=== PATIENT | male | born 2000 | race Hispanic/Latino ===

== ENCOUNTER 2022-05-17 15:08 | Inpatient (IN) | payer OTHER ==
[~2022-05-17] VITALS: Ht 170.2 cm; Wt 77.3 kg
[2022-05-17 16:06] LABS: HEMOGLOBIN 14.8 g/dl (13.5-17.5); MEAN CORPUSCULAR HEMOGLOBIN 30.8 pg (27.0-33.0); MEAN CORPUSCULAR HGB CONC 33.6 g/dl (32.0-36.5); MEAN CORPUSCULAR VOLUME 91.5 fl (80.0-96.0); PLATELET COUNT, AUTOMATED 238 10^3/uL (150-450); RED BLOOD COUNT 4.81 10^6/uL (4.30-6.10); WHITE BLOOD COUNT 6.1 10^3/uL (4.0-10.0)
[2022-05-17 16:47] LABS: RSV AMPLIFICATION NEGATIVE (NEGATIVE)
[2022-05-17 16:47] LABS: ACETAMINOPHEN LEVEL < 2.0 UG/ML (10.0-30.0); ALBUMIN 4.4 GM/DL (3.2-5.2); ALT/SGPT 43 U/L (12-78); BILIRUBIN,DIRECT 0.1 MG/DL (0.0-0.2); BILIRUBIN,TOTAL 0.4 MG/DL (0.2-1.0); BLOOD UREA NITROGEN 11 MG/DL (7-18); CARBON DIOXIDE LEVEL 27 MEQ/L (21-32); CHLORIDE LEVEL 105 MEQ/L (98-107); CREATININE FOR GFR 0.96 MG/DL (0.70-1.30); ETHYL ALCOHOL (ETHANOL) 0.003 % (0.000-0.010); GLOMERULAR FILTRATION RATE > 60.0 (>60); GLUCOSE, FASTING 98 MG/DL (70-100); POTASSIUM SERUM 4.6 MEQ/L (3.5-5.1); SALICYLATE LEVEL < 1.7 MG/DL (5.0-30.0); SODIUM LEVEL 136 MEQ/L (136-145); THYROID STIMULATING HORMONE 0.917 uIU/ML (0.358-3.740); TOTAL PROTEIN 8.1 GM/DL (6.4-8.2)
[2022-05-17 17:15] LABS: AMPHETAMINES LEVEL URINE NEGATIVE (NEGATIVE); BARBITURATES URINE NEGATIVE (NEGATIVE); BENZODIAZEPINES URINE NEGATIVE (NEGATIVE); CANNABINOIDS URINE NEGATIVE (NEGATIVE); COCAINE METABOLITE URINE NEGATIVE (NEGATIVE); METHADONE URINE NEGATIVE (NEGATIVE); OPIATES URINE NEGATIVE (NEGATIVE); PHENCYCLIDINE URINE NEGATIVE (NEGATIVE)
[2022-05-17] MEDS ORDERED: HOME MED LIST COMPLETE! XX SCH (20:55)
[2022-05-18] MEDS: NICOTINE 21MG/24HR 1 EA TRANSDERMAL TD SCH (09:00)
[2022-05-18] MEDS ORDERED: MOM 30ML SUSPENSION UDC PO PRN (13:45)
[2022-05-18] MEDS ORDERED: MAALOX 30 ML SUSP *UDC PO PRN (13:45)
[2022-05-18 14:45] VITALS: BP 125/59
[2022-05-19 06:15] VITALS: BP 110/64
[2022-05-19] MEDS: NICOTINE 21MG/24HR 1 EA TRANSDERMAL TD SCH (08:51)
[2022-05-19] MEDS ORDERED: ACETAMINOPHEN 325 MG TAB PO PRN (10:25)
[2022-05-19] MEDS: OLANZapine 5 MG TAB PO SCH ×2 (14:03→21:34)
[2022-05-19] MEDS: SERTRALINE HCL 50 MG TAB PO SCH (14:04)
[2022-05-19 18:09] VITALS: BP 119/59
[2022-05-20 06:30] VITALS: BP 121/60
[2022-05-20 07:28] LABS: CHOLESTEROL RISK RATIO 2.597 (<5)
[2022-05-20] MEDS: NICOTINE 21MG/24HR 1 EA TRANSDERMAL TD SCH (09:00)
[2022-05-20] MEDS: OLANZapine 5 MG TAB PO SCH ×2 (09:38→23:18)
[2022-05-20] MEDS: SERTRALINE HCL 50 MG TAB PO SCH (09:38)
[2022-05-20 19:22] VITALS: BP 125/59
[2022-05-21 06:30] VITALS: BP 157/89
[2022-05-21] MEDS: NICOTINE 21MG/24HR 1 EA TRANSDERMAL TD SCH (09:00)
[2022-05-21] MEDS: OLANZapine 5 MG TAB PO SCH ×2 (09:27→20:09)
[2022-05-21] MEDS: SERTRALINE HCL 50 MG TAB PO SCH (09:27)
[2022-05-21 18:14] VITALS: BP 130/82
[2022-05-21] MEDS: IBUPROFEN 400MG TAB PO PRN (20:09)
[2022-05-22 07:10] VITALS: BP 122/55
[2022-05-22] MEDS: OLANZapine 5 MG TAB PO SCH ×2 (08:49→20:14)
[2022-05-22] MEDS: SERTRALINE HCL 50 MG TAB PO SCH (08:50)
[2022-05-22] MEDS: IBUPROFEN 400MG TAB PO PRN (11:16)
[2022-05-22 18:11] VITALS: BP 121/67
[2022-05-22] MEDS: traZODone 50 MG TAB PO PRN (20:14)
[2022-05-23 05:58] VITALS: BP 106/66
[2022-05-23] MEDS: OLANZapine 5 MG TAB PO SCH ×2 (08:43→21:09)
[2022-05-23] MEDS: SERTRALINE HCL 50 MG TAB PO SCH (08:43)
[2022-05-23] MEDS: IBUPROFEN 400MG TAB PO PRN (08:45)
[2022-05-23 18:07] VITALS: BP 126/59
[2022-05-23] MEDS: traZODone 50 MG TAB PO PRN (21:09)
[2022-05-24 06:33] VITALS: BP 137/70
[2022-05-24] MEDS: OLANZapine 5 MG TAB PO SCH ×2 (08:51→20:17)
[2022-05-24] MEDS: SERTRALINE HCL 50 MG TAB PO SCH (08:51)
[2022-05-24 16:24] VITALS: BP 117/58
[2022-05-24] MEDS: traZODone 50 MG TAB PO PRN (20:17)
[2022-05-25 06:26] VITALS: BP 134/64
[2022-05-25] MEDS: SERTRALINE HCL 50 MG TAB PO SCH (09:03)
[2022-05-25] MEDS: OLANZapine 5 MG TAB PO SCH ×2 (09:04→21:19)
[2022-05-25] MEDS ORDERED: PILL CUTTER 1 EACH XX PRN (09:05)
[2022-05-25 16:13] VITALS: BP 127/61
[2022-05-25] MEDS: traZODone 50 MG TAB PO PRN (21:19)
[2022-05-26 06:25] VITALS: BP 158/67
[2022-05-26] MEDS: SERTRALINE HCL 50 MG TAB PO SCH (08:48)
[2022-05-26] MEDS: OLANZapine 5 MG TAB PO SCH (08:49)
[2022-05-26] MEDS ORDERED: SERT50TA29 PO (10:03)
[2022-05-26] MEDS ORDERED: OLAN1TAB16 PO (10:03)
[2022-05-26] MEDS ORDERED: TRAZ-252 PO (10:03)
== END 2022-05-26 12:27 | disposition home or self-care (01) | DRG 885 ==
LOC: M ED 15:08 → M ED INP 05-18 13:41 → M PSY 05-18 14:41
PROVIDERS: ADMIT Student in an Organized Health Care Education/Training Program; ATTEND Student in an Organized Health Care Education/Training Program
DX: F32.3 Major depressive disorder, single episode, severe with psychotic features (principal); R45.851 Suicidal ideations; Z62.810 Personal history of physical and sexual abuse in childhood; Z91.51 Personal history of suicidal behavior; Z91.410 Personal history of adult physical and sexual abuse; M79.671 Pain in right foot; M79.672 Pain in left foot; Z56.6 Other physical and mental strain related to work